=== PATIENT | female | born 1995 | race Caucasian/White ===

== ENCOUNTER 2016-12-13 15:56 | Emergency (ER) | payer OTHER ==
[2016-12-13 16:06] VITALS: BP 133/77
[2016-12-13] MEDS ORDERED: Albuterol 2.5 MG/3 ML NEB.SOL* (0.083%) INH ONE (16:15)
--- NOTE | 2016-12-13 16:23 | UC ---
Respiratory Complaint HPI - HPI Summary HPI Summary: Pt had asthma as child, hasn't had problems for years. 1-2 months ago developed allergy symptoms and has been taking daily allergy medicine. In recent weeks is having increasing wheezing and difficulty breathing, waking a couple times per night with symptoms. - History of Current Complaint Chief Complaint: UCRespiratory Stated Complaint: DIFFICULTY BREATHING Time Seen by Provider: 12/13/16 16:07 Hx Obtained From: Patient Hx Last Menstrual Period: nexplanon ?: No Onset/Duration: Gradual Onset, Lasting Weeks Timing: Constant Severity Initially: Mild Severity Currently: Mild Character: Cough: Nonproductive Aggravating Factors: Deep Breaths, Recumbent Position Alleviating Factors: Upright Position Associated Signs And Symptoms: Positive: Wheezing, Nasal Congestion. Negative: Fever, Chills, URI - Allergies/Home Medications Allergies/Adverse Reactions: Allergies Allergy/AdvReac Type Severity Reaction Status Date / Time No Known Allergies Allergy Verified 12/13/16 16:06 Home Medications: Home Medications Etonogestrel [Nexplanon] 68 mg IMPLANT DAILY 12/13/16 [History Confirmed ] PMH/Surg Hx/FS Hx/Imm Hx Respiratory History: Asthma - Surgical History Surgical History: Yes Surgery Procedure, Year, and Place: c section - Family History Known Family History: Positive: Respiratory Disease Negative: Cardiac Disease, Hypertension, Diabetes - Social History Lives: With Family Alcohol Use: Occasionally Substance Use Type: None Smoking Status (MU): Never Smoked Tobacco Have You Smoked in the Last Year: No - Immunization History Most Recent Influenza Vaccination: Not the 2015/2016 Season Review of Systems Constitutional: Negative Skin: Negative Eyes: Negative ENT: Negative Respiratory: Shortness Of Breath, Cough Cardiovascular: Negative Gastrointestinal: Negative Genitourinary: Negative Motor: Negative Neurovascular: Negative Musculoskeletal: Negative Neurological: Negative Psychological: Negative All Other Systems Reviewed And Are Negative: Yes Physical Exam Triage Information Reviewed: Yes Appearance: Well-Appearing, No Pain Distress, Obese Vital Signs: Initial Vital Signs Temp 97.7 F 12/13/16 16:02 Pulse 91 12/13/16 16:02 Resp 16 12/13/16 16:02 BP 133/77 12/13/16 16:02 Pulse Ox 95 12/13/16 16:02 Vital Signs Reviewed: Yes Eye Exam: Normal Eyes: Positive: Conjunctiva Clear ENT Exam: Normal ENT: Positive: Normal ENT inspection, Hearing grossly normal, Pharynx normal, TMs normal Dental Exam: Normal Neck exam: Normal Neck: Positive: Supple, Nontender, No Lymphadenopathy Respiratory: Positive: No respiratory distress, Wheezing, Expiration Cardiovascular Exam: Normal Cardiovascular: Positive: RRR, No Murmur Musculoskeletal Exam: Normal Neurological Exam: Normal Neurological: Positive: Alert Psychological Exam: Normal Skin Exam: Normal UC Diagnostic Evaluation - Laboratory O2 Sat by Pulse Oximetry: 95 Re-Evaluation - Re-Evaluation First Eval Re-Evaluation Time: 16:28 Change: Improved - wheezing decreased, pt reports feeling better Respiratory Course/Dx - Differential Dx/Diagnosis Provider Diagnoses: asthma exacerbation. elevated blood pressure due to discomfort Discharge - Discharge Plan Condition: Stable Disposition: HOME Patient Education Materials: Asthma (ED) Referrals: Kimberly Appiah MD [Primary Care Provider] - 2 Weeks Additional Instructions: If you develop increasing trouble breathing that the albuterol inhaler doesn't help, please return here or go to the emergency department.
== END 2016-12-13 16:40 | disposition home or self-care (01) ==
LOC: UCCORT 15:56
DX: J45.901 Unspecified asthma with (acute) exacerbation (principal); R09.81 Nasal congestion; R03.0 Elevated blood-pressure reading, without diagnosis of hypertension
CPT/HCPCS: 99212; G0463

== ENCOUNTER 2019-04-17 20:26 | Emergency (ER) | payer OTHER ==
[2019-04-17 20:36] VITALS: BP 117/61
--- NOTE | 2019-04-17 20:41 | UC ---
Throat Pain/Nasal Kael HPI - HPI Summary HPI Summary: Patient is a 24yo female presenting with sore throat and mild nonproductive cough yesterday. Also notes nasal congestion. Denies ear pain and sinus tenderness. Denies fever, chills, headaches. Denies n/v/d. Patient states she is concerned for strep throat. - History of Current Complaint Stated Complaint: SORE THROAT Hx Obtained From: Patient Hx Last Menstrual Period: 04/17/19 Pain Intensity: 0 - Allergies/Home Medications Allergies/Adverse Reactions: Allergies Allergy/AdvReac Type Severity Reaction Status Date / Time No Known Allergies Allergy Verified 04/17/19 20:34 Home Medications: Home Medications Copper (Iud) [Paragard IUD] 0 unit .SEE ORDER DAILY 04/17/19 [History Confirmed 04/17/19] Fluticasone HFA 110 mcg(NF) [Flovent HFA 110 mcg(NF)] 1 puff INH BID PRN [History Confirmed 04/17/19] PMH/Surg Hx/FS Hx/Imm Hx Previously Healthy: Yes - Surgical History Surgical History: Yes Surgery Procedure, Year, and Place: c section - Family History Known Family History: Positive: Respiratory Disease Negative: Cardiac Disease, Hypertension, Diabetes - Social History Alcohol Use: Rare Substance Use Type: None Smoking Status (MU): Never Smoked Tobacco Have You Smoked in the Last Year: No - Immunization History Most Recent Influenza Vaccination: Not the 2015/2016 Season Review of Systems All Other Systems Reviewed And Are Negative: Yes Constitutional: Positive: Negative. Negative: Fever, Chills, Fatigue ENT: Positive: Sore Throat, Sinus Congestion. Negative: Ear Ache, Nasal Discharge, Sinus Pain/Tenderness Respiratory: Positive: Negative, Cough - nonproductive. Negative: Shortness Of Breath Cardiovascular: Positive: Negative. Negative: Palpitations, Chest Pain Gastrointestinal: Positive: Negative. Negative: Vomiting, Nausea Musculoskeletal: Positive: Negative Neurological: Positive: Negative. Negative: Headache Physical Exam Triage Information Reviewed: Yes Appearance: Well-Appearing, No Pain Distress, Well-Nourished Vital Signs: Initial Vital Signs Temp 97.4 F 04/17/19 20:32 Pulse 100 04/17/19 20:32 Resp 17 04/17/19 20:32 BP 117/61 04/17/19 20:32 Pulse Ox 99 04/17/19 20:32 Lab Results 04/17/19 Range/Units 20:38 Group A Strep Rapid Positive A (Negative) Vital Signs Reviewed: Yes Eyes: Positive: Conjunctiva Clear ENT: Positive: Hearing grossly normal, Pharyngeal erythema, Nasal congestion, TMs normal, Tonsillar swelling, Tonsillar exudate, Uvula midline. Negative: Nasal drainage, TM bulging, TM dull, TM red Neck: Positive: Supple, Tenderness @ - cervical nodes, Enlarged Nodes @ - bilateral anterior cervical lymphadenopathy Respiratory Exam: Normal Respiratory: Positive: Lungs clear, Normal breath sounds, No respiratory distress. Negative: Crackles, Rhonchi, Stridor, Wheezing Cardiovascular Exam: Normal Cardiovascular: Positive: RRR. Negative: Tachycardia Neurological: Positive: Alert Psychological: Positive: Age Appropriate Behavior Throat Pain/Nasal Course/Dx - Course Course Of Treatment: Treating patient with amoxicillin for strep throat. She received first dose here. She may continue with otc analgesics. Informed her to follow up with PCP if symptoms persist past 10 days. Patient voiced understanding agreed with treatment plan. - Differential Dx/Diagnosis Provider Diagnosis: Strep pharyngitis Discharge ED - Sign-Out/Discharge Documenting (check all that apply): Patient Departure All imaging exams completed and their final reports reviewed: No Studies - Discharge Plan Condition: Stable Disposition: HOME Prescriptions: Amoxicillin PO (*) [Amoxicillin 500 MG CAP*] 500 mg PO Q12H #19 cap Patient Education Materials: Strep Throat (ED) Referrals: Yue Garcia DATA ACQUISITION TECHNICIAN [Primary Care Provider] - If Needed Additional Instructions: As discussed, you tested positive for strep throat today. Take amoxicillin as prescribed for the treatment of strep throat. You received your first dose here in the urgent care. You may take ibuprofen and/or tylenol as directed for fever and pain relief. You may use over the counter throat sprays or lozenges for symptomatic relief. Get plenty of rest and fluids. Follow up with your primary care physician if symptoms worsen or do not resolve in 10 days. - Billing Disposition and Condition Condition: STABLE Disposition: Home
[2019-04-17] MEDS ORDERED: Amoxicillin PO (*) 500 MG CAP PO ONE (20:50)
== END 2019-04-17 20:56 | disposition home or self-care (01) ==
LOC: UCCORT 20:26
DX: J02.0 Streptococcal pharyngitis (principal); R09.81 Nasal congestion
CPT/HCPCS: 87651; 99212; A9270-GY; G0463